=== PATIENT | male | born 1965 | race African-American/Black ===

== ENCOUNTER 2017-07-08 14:07 | Emergency (ER) | payer OTHER ==
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
[2017-07-08] MEDS ORDERED: OXYCODONE-ACETAMINOPHEN 5-325 MG TABLET PO ONE (15:52)
[2017-07-08] MEDS ORDERED: FENTANYL CITRATE INJ/PF 100 MCG/2 ML AMPUL IV PRN (16:49)
[2017-07-08] MEDS ORDERED: RINGERS SOLUTION,LACTATED 1,000 ML IV ONE (16:49)
[2017-07-08 20:22] VITALS: BP 165/90
== END 2017-07-08 20:15 | disposition short-term general hospital (02) ==
LOC: ER 14:07
DX: T20.22XA Burn of second degree of lip(s), initial encounter (principal); T20.24XA Burn of second degree of nose (septum), initial encounter; T20.20XA Burn of second degree of head, face, and neck, unspecified site, initial encounter; T23.202A Burn of second degree of left hand, unspecified site, initial encounter; T23.201A Burn of second degree of right hand, unspecified site, initial encounter; X01.8XXA Other exposure to uncontrolled fire, not in building or structure, initial encounter; Y93.H1 Activity, digging, shoveling and raking; Y92.007 Garden or yard of unspecified non-institutional (private) residence as the place of occurrence of the external cause; I10 Essential (primary) hypertension; E11.9 Type 2 diabetes mellitus without complications
CPT/HCPCS: 99284; 96361; 96374; J3010; J7120

== ENCOUNTER 2018-09-22 17:26 | Inpatient (IN) | payer OTHER ==
--- NOTE | 2018-09-22 17:48 | ER Document Report ---
ED Medical Screen (RME) - General Chief Complaint: Slurred Speech Stated Complaint: SLURRED SPEECH Time Seen by Provider: 09/22/18 17:43 Mode of Arrival: Ambulatory Information source: Patient Notes: Patient is a 53-year-old male presenting to the emergency department chief complaint of slurred speech. Patient's and friend at bedside reports this started approximately 1 week ago. They do report that the symptoms are worsening. Patient does have history of high blood pressure. Patient denies any weakness to any of his extremities. He has equal and very strong acid loader bilaterally. His speech is very slurred, friend at bedside states that patient normally has clear speech. Exam: Equal gastroenterology manager strength bilaterally. Slurred speech. I have greeted and performed a rapid initial assessment of this patient. A comprehensive ED assessment and evaluation of the patient, analysis of test results and completion of the medical decision making process will be conducted by additional ED providers. I have specifically instructed the patient or family members with the patient to immediately return to any nursing staff should anything change in the patient's condition or with their chief complaint. This medical record was dictated with voice recognizing software. There may be grammatical, syntax errors that are unintended. TRAVEL OUTSIDE OF THE [place] IN LAST 30 DAYS: No - Related Data Allergies/Adverse Reactions: No Known Allergies Allergy (Unverified 07/08/17 14:31) Past Medical History - Past Medical History Cardiac Medical History: Reports: Hx Hypertension Endocrine Medical History: Reports: Hx Diabetes Mellitus Type 2 Renal/ Medical History: Denies: Hx Peritoneal Dialysis Musculoskeltal Medical History: Reports Hx Arthritis Physical Exam - Vital signs Vitals: Temp Pulse Resp BP Pulse Ox 99.8 F 111 H 20 186/129 H 94 09/22/18 17:34 09/22/18 17:34 09/22/18 17:34 09/22/18 17:34 09/22/18 17:34 Course - Vital Signs Vital signs: Temp Pulse Resp BP Pulse Ox 99.8 F 111 H 20 186/129 H 94 09/22/18 17:34 09/22/18 17:34 09/22/18 17:34 09/22/18 17:34 09/22/18 17:34
--- NOTE | 2018-09-22 18:19 | RADIOLOGY REPORT (SQ) ---
EXAM DESCRIPTION: CHEST SINGLE VIEW COMPLETED DATE/TIME: 09/22/2018 5:57 pm REASON FOR STUDY: slurred speech x1 week COMPARISON: None. EXAM PARAMETERS: NUMBER OF VIEWS: One view. TECHNIQUE: Single frontal radiographic view of the chest acquired. RADIATION DOSE: NA LIMITATIONS: None. FINDINGS: LUNGS AND PLEURA: No opacities, masses or pneumothorax. No pleural effusion. MEDIASTINUM AND HILAR STRUCTURES: No masses. Contour normal. HEART AND VASCULAR STRUCTURES: Heart normal in size. Normal vasculature. BONES: No acute findings. HARDWARE: None in the chest. OTHER: No other significant finding. IMPRESSION: NO ACUTE RADIOGRAPHIC FINDING IN THE CHEST. TECHNICAL DOCUMENTATION: JOB ID: [id number] [employer]- All Rights Reserved Reading location - IP/workstation name: [email or web address]
--- NOTE | 2018-09-22 18:19 | RADIOLOGY REPORT (SQ) ---
EXAM DESCRIPTION: CT HEAD WITHOUT COMPLETED DATE/TIME: 09/22/2018 5:56 pm REASON FOR STUDY: slurred speech x1 week COMPARISON: None. TECHNIQUE: Axial images acquired through the brain without intravenous contrast. Images reviewed wi th bone, brain and subdural windows. Additional sagittal and coronal reconstructions were generated. Images stored on PACS. All CT scanners at this facility use dose modulation, iterative reconstruction, and/or weight based d osing when appropriate to reduce radiation dose to as low as reasonably achievable (ALARA). [facility]: Dose Right [facility]: CareDose [facility]: Dose Right [facility]: Teradose 4D [facility]: Smart Technologies RADIATION DOSE: CT Rad equipment meets quality standard of care and radiation dose reduction techniq ues were employed. CTDIvol: 53.2 mGy. DLP: 1044 mGy-cm. mGy. LIMITATIONS: None. FINDINGS: VENTRICLES: Normal size and contour. CEREBRUM: No masses. No hemorrhage. No midline shift. No evidence for acute infarction. Very smal l lacunar infarct in the left periventricular region. Normal weaver/white matter differentiation. No ar eas of low density in the white matter. CEREBELLUM: No masses. No hemorrhage. No alteration of density. No evidence for acute infarction. EXTRAAXIAL SPACES: No fluid collections. No masses. ORBITS AND GLOBE: No intra- or extraconal masses. Normal contour of globe without masses. CALVARIUM: No fracture. PARANASAL SINUSES: No fluid or mucosal thickening. SOFT TISSUES: No mass or hematoma. OTHER: No other significant finding. IMPRESSION: Old small left lacunar infarct. No acute intracranial imaging findings. EVIDENCE OF ACUTE STROKE: NO. COMMENT: Quality ID # [id number]: Final reports with documentation of one or more dose reduction techniques (e.g., Automated exposure control, adjustment of the mA and/or kV according to patient size, use of iterative reconstruction technique) TECHNICAL DOCUMENTATION: JOB ID: [id number] [employer]- All Rights Reserved Reading location - IP/workstation name: [email or web address]
[2018-09-22 18:43] LABS: ABSOLUTE BASOPHILS # (AUTO) 0.1 10^3/uL (0.0-0.2); ABSOLUTE EOSINOPHILS # (AUTO) 0.1 10^3/uL (0.0-0.6); ABSOLUTE LYMPHOCYTES (AUTO) 1.8 10^3/uL (0.5-4.7); ABSOLUTE MONOCYTES (AUTO) 0.5 10^3/uL (0.1-1.4); ABSOLUTE NEUT (AUTO) 2.9 10^3/uL (1.7-8.2); EOSINOPHILS % (AUTO) 1.1 % (0-6); HEMATOCRIT 40.1 % (37.9-51.0); HEMOGLOBIN 13.2 g/dL (13.5-17.0); LYMPHOCYTES % (AUTO) 33.2 % (13-45); MEAN CORPUSCULAR HEMOGLOBIN 27.1 pg (27.0-33.4); MEAN CORPUSCULAR HGB CONC 32.8 g/dL (32.0-36.0); MEAN CORPUSCULAR VOLUME 83 fl (80-97); PLATELET COUNT 343 10^3/uL (150-450); RED BLOOD COUNT 4.87 10^6/uL (4.35-5.55); RED CELL DISTRIBUTION WIDTH 15.3 % (11.5-14.0); SEGMENTED NEUTROPHILS % (AUTO) 54.7 % (42-78); TOTAL CELLS COUNTED % (AUTO) 100 %; WHITE BLOOD COUNT 5.3 10^3/uL (4.0-10.5)
[2018-09-22 18:49] LABS: INTERNATIONAL RATION (INR) 0.93; PROTHROMBIN TIME 12.5 SEC (11.4-15.4)
[2018-09-22 18:50] LABS: PARTIAL THROMBOPLASTIN TIME 25.8 SEC (23.5-35.8)
[2018-09-22 19:12] LABS: CREATINE KINASE MB 1.37 ng/mL (<4.55); TROPONIN I 0.013 ng/mL
[2018-09-22 19:23] LABS: ALANINE AMINOTRANSFERASE 37 U/L (21-72); ALBUMIN 4.6 g/dL (3.5-5.0); ALKALINE PHOSPHATASE 53 U/L (38-126); ANION GAP 12 (5-19); ASPARTATE AMINO TRANSFERASE 37 U/L (17-59); BILIRUBIN,DIRECT 0.2 mg/dL (0.0-0.4); BILIRUBIN,TOTAL 0.3 mg/dL (0.2-1.3); BLOOD UREA NITROGEN 11 mg/dL (7-20); CALCIUM 10.2 mg/dL (8.4-10.2); CARBON DIOXIDE 32 mmol/L (22-30); CHLORIDE 100 mmol/L (98-107); CREATINE KINASE 623 U/L (55-170); GLUCOSE 211 mg/dL (75-110); SODIUM 143.8 mmol/L (137-145); TOTAL PROTEIN 8.4 g/dL (6.3-8.2)
--- NOTE | 2018-09-22 20:30 | ER Document Report ---
ED Neuro Symptoms/Deficit - General Chief Complaint: Slurred Speech Stated Complaint: SLURRED SPEECH Time Seen by Provider: 09/22/18 17:43 Mode of Arrival: Ambulatory Notes: Patient is a 53-year-old male that comes to the emergency department for chief complaint of slurred speech. This started almost 1 week ago per patient and friend at bedside. They state normally he has clear speech and this is completely new. Patient denies headache, chest pain, dizziness, focal numbness or weakness. He does not have a history of CVA. Past medical history includes hypertension, hyperlipidemia, type 2 diabetes, medicated. He does not smoke. Friend states that for some reason patient keeps repeating the line "yessir" ab out everything. TRAVEL OUTSIDE OF THE [place] IN LAST 30 DAYS: No - Related Data Allergies/Adverse Reactions: No Known Allergies Allergy (Unverified 07/08/17 14:31) Past Medical History - General Information source: Patient - Social History Smoking Status: Unknown if Ever Smoked Chew tobacco use (# tins/day): No Frequency of alcohol use: None Drug Abuse: None Lives with: Family Family History: Reviewed & Not Pertinent Patient has suicidal ideation: No Patient has homicidal ideation: No - Past Medical History Cardiac Medical History: Reports: Hx Hypertension Endocrine Medical History: Reports: Hx Diabetes Mellitus Type 2 Renal/ Medical History: Denies: Hx Peritoneal Dialysis Musculoskeletal Medical History: Reports Hx Arthritis Review of Systems - Review of Systems Constitutional: No symptoms reported EENT: No symptoms reported Cardiovascular: No symptoms reported Respiratory: No symptoms reported Gastrointestinal: No symptoms reported Genitourinary: No symptoms reported Male Genitourinary: No symptoms reported Musculoskeletal: No symptoms reported Skin: No symptoms reported Hematologic/Lymphatic: No symptoms reported Neurological/Psychological: See HPI Physical Exam - Vital signs Vitals: Temp Pulse Resp BP Pulse Ox 99.8 F 111 H 20 186/129 H 94 09/22/18 17:34 09/22/18 17:34 09/22/18 17:34 09/22/18 17:34 09/22/18 17:34 - Notes Notes: GENERAL: Alert, interacts well. No acute distress. HEAD: Normocephalic, atraumatic. EYES: Pupils equal, round, and reactive to light. Extraocular movements intact. ENT: Oral mucosa moist, tongue midline. Oropharynx unremarkable. Airway patent. LUNGS: Clear to auscultation bilaterally, no wheezes, rales, or rhonchi. No respiratory distress. HEART: Regular rate and rhythm. No murmur ABDOMEN: Soft, non-tender. Non-distended. Bowel sounds present in all 4 quadrants. GENITOURINARY: Deferred EXTREMITIES: Moves all 4 extremities spontaneously. No edema, normal radial and dorsalis pedis pulses bilaterally. No cyanosis. BACK: no cervical, thoracic, lumbar midline tenderness. No saddle anesthesia, normal distal neurovascular exam. Moves all extremities in full range of motion. NEUROLOGICAL: Alert and oriented x3. Slurred speech consistently. Appears to have weakness of the left side of the face noted with smiling. Cranial nerves intact otherwise. Normal strength bilaterally. No ataxia. PSYCH: Normal affect, normal mood. SKIN: Warm, dry, normal turgor. No rashes or lesions noted. Course - Re-evaluation Re-evalutation: 09/22/18 20:29 On my evaluation patient definitely has slurred speech and keeps repeating "yessir" about everything. He does follow directions well. He can be understood but this is not difficult at times. Patient also appears to have weakness of the left side of the face on my evaluation although he has no other neurological deficits on exam. Because symptoms started 1 week ago patient is obviously past the window for TPA. Patient is hypertensive, he is not tachycardic on my evaluation, he has no fever, he has no current complaints. CBC, chemistry, troponin unremarkable. EKG does not show atrial fibrillation. Patient is very hypertensive in the 180s to 190s. CAT scan showing old lacunar infarct which is small. Patient with examination suggesting possible additional stroke that is not visualized. Patient will be given aspirin, patient will be discussed with hospitalist for admission. Discussed with Dr. Miranda, patient admitted to the [facility] for additional evaluation and management. Patient states agreement with this plan. - Vital Signs Vital signs: Temp Pulse Resp BP Pulse Ox 98.2 F 93 16 163/75 H 97 09/23/18 03:13 09/23/18 04:00 09/23/18 04:00 09/23/18 04:00 09/23/18 04:00 - Laboratory Result Diagrams: 09/23/18 04:28 09/22/18 18:24 Laboratory results interpreted by me: 09/22/18 09/22/18 09/22/18 18:23 18:24 18:24 Hgb 13.2 L RDW 15.3 H Carbon Dioxide 32 H Glucose 211 H POC Glucose 206 H Creatine Kinase 623 H Total Protein 8.4 H Discharge - Discharge Clinical Impression: Slurred speech, Weakness on left side of face, Uncontrolled hypertension Condition: Stable Disposition: ADMITTED INPATIENT Admitting Provider: Ruben (Hospitalist) Unit Admitted: [facility]
[2018-09-22] MEDS ORDERED: ASPIRIN 81 MG TABLET, CHEWABLE PO ONE (21:01)
[2018-09-22] MEDS ORDERED: DEXTROSE 40% GEL 15 GM TUBE PO PRN ×2 (21:02)
[2018-09-22] MEDS ORDERED: MAGNESIUM HYDROXIDE SUSP 30 ML UDCUP PO PRN (21:02)
[2018-09-22] MEDS ORDERED: DOCUSATE SODIUM 100 MG CAPSULE PO PRN (21:02)
[2018-09-22] MEDS ORDERED: GLUCAGON,HUMAN RECOMB 1 MG INJ IM PRN (21:02)
[2018-09-22] MEDS ORDERED: ACETAMINOPHEN 325 MG TABLET PO PRN (21:02)
[2018-09-22] MEDS ORDERED: DEXTROSE 50%-WATER 25 GM/50 ML DISP.SYRIN IV PRN ×2 (21:02)
[2018-09-22] MEDS: ATORVASTATIN CALCIUM 80 MG TABLET PO SCH (21:33)
[2018-09-22] MEDS: HEPARIN SOD (PORCINE) 5,000 UNIT/ML 1 ML SYRINGE SUBCUT SCH (22:10)
--- NOTE | 2018-09-22 22:32 | RADIOLOGY REPORT (SQ) ---
EXAM DESCRIPTION: RadLex: MR BRAIN WITHOUT IV CONTRAST CLINICAL HISTORY: 53 years Male; L facial weakness and slurred speach TECHNIQUE: Routine noncontrast MRI brain protocol COMPARISON: CT 09/22/2018 FINDINGS: There are multiple scattered predominantly cortical foci of diffusion restriction in the posterior right frontal lobe and inferior right parietal lobe, also involving posterior superior right temporal gyrus. These scattered focal acute infarcts involving area approximately 7 cm AP by 3.5 cm LR by 5 cm SI. There is associated focal vasogenic edema with each of the infarcts, but no evidence for hemorrhage on gradient echo. Diffuse atrophy is noted. Old focal infarct is noted in the left centrum semiovale and in the lateral left basal ganglia. Old focal 1.1 cm infarct in the inferior medial left occipital lobe. Old focal lacunar infarcts in the left hemipons, 5 mm diameter. No hemosiderin deposition. Ventricles and cisterns are preserved. No midline shift. Calvarial marrow is normal. Paranasal sinuses and mastoid air cells are clear. Normal flow-voids are seen in the major intracranial arteries. IMPRESSION: 1. Multiple small scattered acute cortical/subcortical infarcts in the posterior right MCA territory. All infarcts are less than 7 mm. No hemorrhage or mass effect. 2. Atrophy and multiple old infarcts, as described
[2018-09-23 02:10] LABS: URINE AMPHETAMINES SCREEN NEGATIVE; URINE BARBITURATES SCREEN NEGATIVE; URINE BENZODIAZEPINES SCREEN NEGATIVE; URINE COCAINE SCREEN NEGATIVE; URINE MARIJUANA (THC) SCREEN NEGATIVE; URINE METHADONE SCREEN NEGATIVE; URINE PHENCYCLIDINE SCREEN NEGATIVE
[2018-09-23 04:46] LABS: ABSOLUTE EOSINOPHILS # (AUTO) 0.1 10^3/uL (0.0-0.6); ABSOLUTE LYMPHOCYTES (AUTO) 1.5 10^3/uL (0.5-4.7); ABSOLUTE MONOCYTES (AUTO) 0.4 10^3/uL (0.1-1.4); ABSOLUTE NEUT (AUTO) 3.4 10^3/uL (1.7-8.2); BASOPHILS % (AUTO) 0.7 % (0-2); EOSINOPHILS % (AUTO) 1.8 % (0-6); HEMATOCRIT 36.9 % (37.9-51.0); LYMPHOCYTES % (AUTO) 27.8 % (13-45); MEAN CORPUSCULAR HEMOGLOBIN 26.8 pg (27.0-33.4); MEAN CORPUSCULAR HGB CONC 32.6 g/dL (32.0-36.0); MEAN CORPUSCULAR VOLUME 82 fl (80-97); PLATELET COUNT 308 10^3/uL (150-450); RED BLOOD COUNT 4.48 10^6/uL (4.35-5.55); RED CELL DISTRIBUTION WIDTH 15.1 % (11.5-14.0); SEGMENTED NEUTROPHILS % (AUTO) 61.7 % (42-78); TOTAL CELLS COUNTED % (AUTO) 100 %; WHITE BLOOD COUNT 5.6 10^3/uL (4.0-10.5)
[2018-09-23 04:58] LABS: CHOLESTEROL 57.42 mg/dL (0-200); TRIGLYCERIDES 84 mg/dL (<150)
[2018-09-23 05:14] LABS: DIRECT LDL < 30 mg/dL (<100)
[2018-09-23] MEDS: HEPARIN SOD (PORCINE) 5,000 UNIT/ML 1 ML SYRINGE SUBCUT SCH ×3 (05:26→21:30)
--- NOTE | 2018-09-23 06:45 | PDOC H&P ---
History of Present Illness Admission Date/PCP: 09/22/18 21:[facility] Patient complains of: Slurred speech History of Present Illness: KEELY MURPHY is a 53 year old male with a past medical history of hypertension and diabetes who presents 5 days after the onset of left-sided facial weakness and slurred speech. In the emergency room he is found to have dense weakness to the left face with slurred speech. He denies palpitations, headache blurred vision focal weakness but clearly has expressive aphasia. He is referred to the hospitalist for admission Past Medical History Cardiac Medical History: Reports: Hypertension Endocrine Medical History: Reports: Diabetes Mellitus Type 2 Musculoskeltal Medical History: Reports: Arthritis Social History Information Source: Patient Lives with: Family Smoking Status: Unknown if Ever Smoked Frequency of Alcohol Use: None - Room Drugs: None - Advance Directive Resuscitation Status: Full Code Family History Family History: Reviewed & Not Pertinent Parental Family History Reviewed: Yes Children Family History Reviewed: Yes Sibling(s) Family History Reviewed.: Yes Medication/Allergy Allergies/Adverse Reactions: No Known Allergies Allergy (Unverified 07/08/17 14:31) Review of Systems Constitutional: ABSENT: chills, fever(s), headache(s), weight gain, weight loss Eyes: ABSENT: visual disturbances Ears: ABSENT: hearing changes Cardiovascular: ABSENT: chest pain, dyspnea on exertion, edema, orthropnea, palpitations Respiratory: ABSENT: cough, hemoptysis Gastrointestinal: ABSENT: abdominal pain, constipation, diarrhea, hematemesis, hematochezia, nausea, vomiting Genitourinary: ABSENT: dysuria, hematuria Musculoskeletal: ABSENT: joint swelling Integumentary: ABSENT: rash, wounds Neurological: ABSENT: abnormal gait, abnormal speech, confusion, dizziness, focal weakness, syncope Psychiatric: ABSENT: anxiety, depression, homidical ideation, suicidal ideation Endocrine: ABSENT: cold intolerance, heat intolerance, polydipsia, polyuria Hematologic/Lymphatic: ABSENT: easy bleeding, easy bruising Physical Exam Vital Signs: Temp Pulse Resp BP Pulse Ox 98.2 F 93 16 163/75 H 97 09/23/18 03:13 09/23/18 04:00 09/23/18 04:00 09/23/18 04:00 09/23/18 04:00 Intake & Output 09/21/18 09/22/18 09/23/18 11:59 11:59 11:59 Weight 112.6 kg General appearance: PRESENT: cooperative, disheveled, mild distress, obese Head exam: PRESENT: atraumatic, normocephalic Eye exam: PRESENT: conjunctiva pink, EOMI, PERRLA. ABSENT: scleral icterus Ear exam: PRESENT: normal external ear exam Mouth exam: PRESENT: moist. ABSENT: tongue midline - Right deviation Neck exam: ABSENT: carotid bruit, JVD, lymphadenopathy, thyromegaly Respiratory exam: PRESENT: clear to auscultation amaris. ABSENT: rales, rhonchi, wheezes Cardiovascular exam: PRESENT: RRR. ABSENT: diastolic murmur, rubs, systolic murmur Pulses: PRESENT: normal dorsalis pedis pul Vascular exam: PRESENT: normal capillary refill GI/Abdominal exam: PRESENT: normal bowel sounds, soft. ABSENT: distended, guarding, mass, organolmegaly, rebound, tenderness Rectal exam: PRESENT: deferred Extremities exam: PRESENT: full ROM. ABSENT: calf tenderness, clubbing, pedal edema Neurological exam: PRESENT: alert, oriented to person, oriented to place, oriented to time, CN II-XII grossly intact, motor sensory deficit - Left face, aphasic Psychiatric exam: PRESENT: appropriate affect, normal mood. ABSENT: homicidal ideation, suicidal ideation Skin exam: PRESENT: dry, intact, warm. ABSENT: cyanosis, rash Results Laboratory Results: 09/23/18 04:28 09/22/18 18:24 09/22/18 09/22/18 09/23/18 18:24 18:24 04:28 WBC 5.3 5.6 RBC 4.87 4.48 Hgb 13.2 L 12.0 L Hct 40.1 36.9 L MCV 83 82 MCH 27.1 26.8 L MCHC 32.8 32.6 RDW 15.3 H 15.1 H Plt Count 343 308 Seg Neutrophils % 54.7 61.7 Lymphocytes % 33.2 27.8 Monocytes % 10.0 8.0 Eosinophils % 1.1 1.8 Basophils % 1.0 0.7 Absolute Neutrophils 2.9 3.4 Absolute Lymphocytes 1.8 1.5 Absolute Monocytes 0.5 0.4 Absolute Eosinophils 0.1 0.1 Absolute Basophils 0.1 0.0 Sodium 143.8 Potassium 4.0 Chloride 100 Carbon Dioxide 32 H Anion Gap 12 BUN 11 Creatinine 1.05 Est GFR ( Amer) > 60 Est GFR (Non-Af Amer) > 60 Glucose 211 H Calcium 10.2 Total Bilirubin 0.3 AST 37 ALT 37 Alkaline Phosphatase 53 Total Protein 8.4 H Albumin 4.6 Triglycerides Cholesterol LDL Cholesterol Direct VLDL Cholesterol HDL Cholesterol 09/23/18 04:28 WBC RBC Hgb Hct MCV MCH MCHC RDW Plt Count Seg Neutrophils % Lymphocytes % Monocytes % Eosinophils % Basophils % Absolute Neutrophils Absolute Lymphocytes Absolute Monocytes Absolute Eosinophils Absolute Basophils Sodium Potassium Chloride Carbon Dioxide Anion Gap BUN Creatinine Est GFR ( Amer) Est GFR (Non-Af Amer) Glucose Calcium Total Bilirubin AST ALT Alkaline Phosphatase Total Protein Albumin Triglycerides 84 Cholesterol 57.42 LDL Cholesterol Direct < 30 VLDL Cholesterol 17.0 HDL Cholesterol 29 L 09/22/18 09/22/18 18:24 18:24 Creatine Kinase 623 H CK-MB (CK-2) 1.37 Troponin I 0.013 Impressions: Head MRI 09/22/18 00:00 IMPRESSION: 1. Multiple small scattered acute cortical/subcortical infarcts in the posterior right MCA territory. All infarcts are less than 7 mm. No hemorrhage or mass effect. 2. Atrophy and multiple old infarcts, as described Chest X-Ray 09/22/18 17:46 IMPRESSION: NO ACUTE RADIOGRAPHIC FINDING IN THE CHEST. Head CT 09/22/18 17:46 IMPRESSION: Old small left lacunar infarct. No acute intracranial imaging findings. EVIDENCE OF ACUTE STROKE: NO. Assessment and Plan - Diagnosis (1) CVA (cerebral vascular accident) Is this a current diagnosis for this admission?: Yes Plan: CVA care set deployed, follow-up physical therapy, occupational therapy and speech therapy carotid Doppler, MRI and 2D echo. Continue aspirin and Lipitor (2) Expressive aphasia Is this a current diagnosis for this admission?: Yes Plan: Speech therapy ordered concern for aspiration risk may require barium evaluation. (3) Diabetes Is this a current diagnosis for this admission?: Yes Plan: Follow-up medication reconciliation, Humalog sliding scale, follow-up A1c (4) Hypertension Is this a current diagnosis for this admission?: Yes Plan: MAGNOLIA inhibitor, hydralazine as needed
[2018-09-23] MEDS: INSULIN LISPRO 100 UNIT/ML 3 ML VIAL SUBCUT SCH ×3 (08:10→17:15)
[2018-09-23] MEDS ORDERED: ASPIRIN 325 MG TABLET, ENT COATED PO SCH (10:00)
[2018-09-23] MEDS: HYDRALAZINE HCL INJ/PF 20 MG/1 ML SDV IV PRN (15:24)
--- NOTE | 2018-09-23 15:38 | PDOC PROGRESS REPORT ---
Subjective Progress Note for:: 09/23/18 Subjective:: This is a 53 yr old male with a PMH of HTN and DM 2 who presented with left sided facail weakness and slurred speech which started 5 days ago. MRI showed acute/subacute infarcts on the right MCA distribution. No acute event overnight. He says he still has some left facial numbness. His father at bedside says that his slurred speech is a little better today. Denies any headache. No weakness, vertigo, chest pain or shortness of breath. He was evaluated by speech therapy and has recommended mechanical soft diet for now and an MBS on Tuesday. Reason For Visit: HTN EMRG SUB ACUTE CVA DM Physical Exam Vital Signs: Temp Pulse Resp BP Pulse Ox 98.5 F 89 16 147/81 H 97 09/23/18 09:07 09/23/18 09:07 09/23/18 09:07 09/23/18 09:07 09/23/18 09:07 Intake & Output 09/22/18 09/23/18 09/24/18 06:59 06:59 06:59 Weight 248 lb 3.848 oz General appearance: PRESENT: no acute distress, well-developed, well-nourished Head exam: PRESENT: atraumatic, normocephalic Eye exam: PRESENT: conjunctiva pink, EOMI, PERRLA. ABSENT: scleral icterus Ear exam: PRESENT: normal external ear exam Mouth exam: PRESENT: moist, tongue midline Neck exam: ABSENT: carotid bruit, JVD, lymphadenopathy, thyromegaly Respiratory exam: PRESENT: clear to auscultation amaris. ABSENT: rales, rhonchi, wheezes Cardiovascular exam: PRESENT: RRR. ABSENT: diastolic murmur, rubs, systolic murmur Pulses: PRESENT: normal dorsalis pedis pul GI/Abdominal exam: PRESENT: normal bowel sounds, soft. ABSENT: distended, guarding, mass, organolmegaly, rebound, tenderness Rectal exam: PRESENT: deferred Neurological exam: PRESENT: alert, awake, oriented to person, oriented to place, oriented to time, oriented to situation, CN II-XII grossly intact, motor sensory deficit - Slightly reduced sensation in the left facial region Results Laboratory Results: 09/23/18 04:28 09/22/18 18:24 09/22/18 09/22/18 09/23/18 18:24 18:24 04:28 WBC 5.3 5.6 RBC 4.87 4.48 Hgb 13.2 L 12.0 L Hct 40.1 36.9 L MCV 83 82 MCH 27.1 26.8 L MCHC 32.8 32.6 RDW 15.3 H 15.1 H Plt Count 343 308 Seg Neutrophils % 54.7 61.7 Lymphocytes % 33.2 27.8 Monocytes % 10.0 8.0 Eosinophils % 1.1 1.8 Basophils % 1.0 0.7 Absolute Neutrophils 2.9 3.4 Absolute Lymphocytes 1.8 1.5 Absolute Monocytes 0.5 0.4 Absolute Eosinophils 0.1 0.1 Absolute Basophils 0.1 0.0 Sodium 143.8 Potassium 4.0 Chloride 100 Carbon Dioxide 32 H Anion Gap 12 BUN 11 Creatinine 1.05 Est GFR ( Amer) > 60 Est GFR (Non-Af Amer) > 60 Glucose 211 H Calcium 10.2 Total Bilirubin 0.3 AST 37 ALT 37 Alkaline Phosphatase 53 Total Protein 8.4 H Albumin 4.6 Triglycerides Cholesterol LDL Cholesterol Direct VLDL Cholesterol HDL Cholesterol 09/23/18 04:28 WBC RBC Hgb Hct MCV MCH MCHC RDW Plt Count Seg Neutrophils % Lymphocytes % Monocytes % Eosinophils % Basophils % Absolute Neutrophils Absolute Lymphocytes Absolute Monocytes Absolute Eosinophils Absolute Basophils Sodium Potassium Chloride Carbon Dioxide Anion Gap BUN Creatinine Est GFR ( Amer) Est GFR (Non-Af Amer) Glucose Calcium Total Bilirubin AST ALT Alkaline Phosphatase Total Protein Albumin Triglycerides 84 Cholesterol 57.42 LDL Cholesterol Direct < 30 VLDL Cholesterol 17.0 HDL Cholesterol 29 L 09/22/18 09/22/18 18:24 18:24 Creatine Kinase 623 H CK-MB (CK-2) 1.37 Troponin I 0.013 Impressions: Head MRI 09/22/18 00:00 IMPRESSION: 1. Multiple small scattered acute cortical/subcortical infarcts in the posterior right MCA territory. All infarcts are less than 7 mm. No hemorrhage or mass effect. 2. Atrophy and multiple old infarcts, as described Chest X-Ray 09/22/18 17:46 IMPRESSION: NO ACUTE RADIOGRAPHIC FINDING IN THE CHEST. Head CT 09/22/18 17:46 IMPRESSION: Old small left lacunar infarct. No acute intracranial imaging findings. EVIDENCE OF ACUTE STROKE: NO. Assessment and Plan - Diagnosis (1) Acute CVA (cerebrovascular accident) Is this a current diagnosis for this admission?: Yes Plan: As mentioned, MRI showed multiple acute/subacute infarcts in the posterior right MCA distribution. Patient is not a TPA candidate as he had symptom onset 5 days ago. Started on aspirin and statin. (2) Diabetes Is this a current diagnosis for this admission?: Yes Plan: Hba1c at 6.8. On sliding scale. (3) Hypertension Is this a current diagnosis for this admission?: Yes Plan: Resume lisinopril. Add carvedilol. On hydralazine prn. - Time Time Spent with patient: 25-34 minutes
--- NOTE | 2018-09-23 16:01 | RADIOLOGY REPORT (SQ) ---
EXAM DESCRIPTION: CAROTID DOPPLER COMPLETED DATE/TIME: 09/23/2018 3:50 pm REASON FOR STUDY: cva COMPARISON: MRI brain 09/22/2018 CT brain 09/22/2018 TECHNIQUE: Grayscale ultrasound, Doppler velocity and spectra, and color Doppler images acquired of the extra-cranial carotid and vertebral arteries. Images stored on PACS. LIMITATIONS: None. FINDINGS: RIGHT CAROTID CCA Velocities: Within normal limits. Right common carotid artery peak systolic velocity 1.2 m/sec ICA Velocities Peak systolic 0.33 m/s. End diastolic 0.12 m/s. Proximal ICA/CCA peak systolic ratio normal. Spectra normal. No significant plaque. LEFT CAROTID CCA Velocities: Within normal limits. Left common carotid artery peak systolic velocity 1 m/sec. ICA Velocities Peak systolic 0.54 m/s. End diastolic 0.28 m/s. Proximal ICA/CCA peak systolic ratio normal. Spectra normal. No significant plaque. VERTEBRAL ARTERIES: Antegrade flow. Normal waveforms. SUBCLAVIAN ARTERIES: Not examined OTHER: No other significant finding. IMPRESSION: NO HEMODYNAMICALLY SIGNIFICANT STENOSIS. COMMENT: Quality ID #[id number]: Velocity criteria are extrapolated from the diameter data as defined by t he Society of Radiologists in Ultrasound Consensus Conference. Radiology 2003: 229; 340-346. TECHNICAL DOCUMENTATION: JOB ID: [id number] [employer]- All Rights Reserved Reading location - IP/workstation name: [email or web address]
[2018-09-23] MEDS ORDERED: METHOCARBAMOL 750 MG TABLET PO PRN (16:29)
[2018-09-23] MEDS ORDERED: CARVEDILOL 6.25 MG TABLET PO ONE (17:00)
[2018-09-23] MEDS ORDERED: NITROGLYCERIN/D5W 50 MG/250 ML RTUINJ IV PRN (18:57)
[2018-09-23] MEDS ORDERED: NITROGLYCERIN/D5W 50 MG/250 ML RTUINJ IV ONE (18:57)
--- NOTE | 2018-09-23 19:15 | EKG REPORT ---
SEVERITY:- ABNORMAL ECG - SINUS RHYTHM BORDERLINE INFERIOR Q WAVES BORDERLINE T ABNORMALITIES, INFERIOR LEADS BORDERLINE PROLONGED QT INTERVAL : Confirmed by: Oliva Pedraza 23-Sep-2018 19:14:13
[2018-09-23] MEDS: ATORVASTATIN CALCIUM 80 MG TABLET PO SCH (21:30)
[2018-09-24] MEDS: HEPARIN SOD (PORCINE) 5,000 UNIT/ML 1 ML SYRINGE SUBCUT SCH ×2 (06:00→13:44)
[2018-09-24] MEDS ORDERED: SUCCINYLCHOLINE CHLORIDE INJ 200 MG/10 ML VIAL ONE ×2 (08:51→14:55)
[2018-09-24] MEDS: INSULIN LISPRO 100 UNIT/ML 3 ML VIAL SUBCUT SCH ×3 (08:58→16:11)
[2018-09-24] MEDS ORDERED: CARVEDILOL 12.5 MG TABLET PO SCH (10:00)
[2018-09-24] MEDS ORDERED: LISINOPRIL 10 MG TABLET PO SCH (10:00)
[2018-09-24] MEDS ORDERED: CARVEDILOL 6.25 MG TABLET PO SCH (10:00)
[2018-09-24] MEDS ORDERED: HYDROCHLOROTHIAZIDE 25 MG TABLET PO SCH (10:00)
[2018-09-24] MEDS ORDERED: ASPIRIN 81 MG TABLET, CHEWABLE PO SCH (10:00)
[2018-09-24] MEDS: HYDRALAZINE HCL INJ/PF 20 MG/1 ML SDV IV PRN (10:30)
[2018-09-24 10:41] LABS: ANION GAP 12 (5-19); BLOOD UREA NITROGEN 10 mg/dL (7-20); CALCIUM 9.7 mg/dL (8.4-10.2); CARBON DIOXIDE 31 mmol/L (22-30); CHLORIDE 98 mmol/L (98-107); GLUCOSE 206 mg/dL (75-110); POTASSIUM 4.2 mmol/L (3.6-5.0); SODIUM 140.5 mmol/L (137-145)
[2018-09-24] MEDS ORDERED: CLONIDINE HCL 0.1 MG TABLET PO ONE (11:30)
[2018-09-24] MEDS ORDERED: NITROGLYCERIN/D5W 50 MG/250 ML RTUINJ IV PRN (14:36)
--- NOTE | 2018-09-24 14:38 | RADIOLOGY REPORT (SQ) ---
EXAM DESCRIPTION: CT HEAD WITHOUT COMPLETED DATE/TIME: 09/24/2018 2:16 pm REASON FOR STUDY: AMS COMPARISON: CT HEAD 09/22/2018. MRI brain 09/22/2018 TECHNIQUE: Axial images acquired through the brain without intravenous contrast. Images reviewed wi th bone, brain and subdural windows. Images stored on PACS. All CT scanners at this facility use dose modulation, iterative reconstruction, and/or weight based d osing when appropriate to reduce radiation dose to as low as reasonably achievable (ALARA). [facility]: Dose Right [facility]: CareDose [facility]: Dose Right [facility]: Teradose 4D [facility]: Smart Technologies RADIATION DOSE: CT Rad equipment meets quality standard of care and radiation dose reduction techniq ues were employed. CTDIvol: 53.2 mGy. DLP: 1017 mGy-cm. mGy. LIMITATIONS: None. FINDINGS: VENTRICLES: Prominent ventricles secondary to involutional atrophy. CEREBRUM: No masses. No hemorrhage. No midline shift. No evidence for large vessel territory acute infarction. Old left centrum semi ovale, left basal ganglia and left inferior medial occipital lobe subcortical infarcts. Normal weaver/white matter differentiation. No areas of low density in the white matter. CEREBELLUM: No masses. No hemorrhage. No alteration of density. No evidence for acute infarction. EXTRAAXIAL SPACES: No fluid collections. No masses. ORBITS AND GLOBE: No intra- or extraconal masses. Normal contour of globe without masses. CALVARIUM: No fracture. PARANASAL SINUSES: Minimal left maxillary sinus mucosal thickening. SOFT TISSUES: No mass or hematoma. OTHER: No other significant finding. IMPRESSION: NO ACUTE INTRACRANIAL IMAGING FINDINGS. EVIDENCE OF ACUTE STROKE: NO. COMMENT: Quality ID # [id number]: Final reports with documentation of one or more dose reduction techniques (e.g., Automated exposure control, adjustment of the mA and/or kV according to patient size, use of iterative reconstruction technique) TECHNICAL DOCUMENTATION: JOB ID: [id number] [employer]- All Rights Reserved Reading location - IP/workstation name: [email or web address]
[2018-09-24] MEDS ORDERED: DEXAMETHASONE SOD PHOSPHATE INJ 4 MG/1 ML VIAL IV ONE (14:45)
--- NOTE | 2018-09-24 15:10 | PDOC PROGRESS REPORT ---
Subjective Progress Note for:: 09/24/18 Subjective:: This is a 53 yr old male with a PMH of HTN and DM 2 who presented with left sided facail weakness and slurred speech which started 5 days ago. MRI showed acute/subacute infarcts on the right MCA distribution. He says he still has some left facial numbness. His father at bedside says that his slurred speech is a little better today. Denies any headache. No weakness, vertigo, chest pain or shortness of breath. He was evaluated by speech therapy and has recommended mechanical soft diet for now and an MBS on Tuesday. 09/24: Patient was started on nitro drip last night as his blood pressures were uncontrolled and went to the 200 systolic and he became less conversant. This morning, he continues to have slurred speech but is more conversant and did state that l his eft facial numbness has resolved. Coreg was increased and hydrochlorothiazide was also added as he continued to require uptitration of nitro drip. Later this afternoon, blood pressures dropped to the 140s-150 systolic and he did developed the same episode where he was not as conversant as this morning. Will avoid significant drop in blood pressures due to his acute CVA. Will repeat head CT to assess for hemorrhagic conversion or cerebral edema. Will transfer patient to the ICU due to blood pressure fluctuations and accompanying mental status changes. Reason For Visit: HTN EMRG SUB ACUTE CVA DM Physical Exam Vital Signs: Temp Pulse Resp BP Pulse Ox 99.0 F 113 H 16 162/93 H 96 09/24/18 11:22 09/24/18 12:00 09/24/18 12:00 09/24/18 12:00 09/24/18 12:00 Intake & Output 09/23/18 09/24/18 09/25/18 06:59 06:59 06:59 Intake Total 1429 Output Total 100 Balance 1329 Weight 248 lb 3.848 oz 248 lb 0.321 oz General appearance: PRESENT: no acute distress, well-developed, well-nourished Head exam: PRESENT: atraumatic, normocephalic Eye exam: PRESENT: conjunctiva pink, EOMI, PERRLA. ABSENT: scleral icterus Ear exam: PRESENT: normal external ear exam Mouth exam: PRESENT: moist, tongue midline Neck exam: ABSENT: carotid bruit, JVD, lymphadenopathy, thyromegaly Respiratory exam: PRESENT: clear to auscultation amaris. ABSENT: rales, rhonchi, wheezes Cardiovascular exam: PRESENT: RRR. ABSENT: diastolic murmur, rubs, systolic murmur Pulses: PRESENT: normal dorsalis pedis pul GI/Abdominal exam: PRESENT: normal bowel sounds, soft. ABSENT: distended, guarding, mass, organolmegaly, rebound, tenderness Rectal exam: PRESENT: deferred Neurological exam: PRESENT: alert, awake, oriented to person, oriented to place, oriented to time, oriented to situation, CN II-XII grossly intact - Appears to have mild left hemineglect speech is slurred,, no sensorimotor weakness Results Laboratory Results: 09/23/18 04:28 09/24/18 10:07 09/24/18 10:07 Sodium 140.5 Potassium 4.2 Chloride 98 Carbon Dioxide 31 H Anion Gap 12 BUN 10 Creatinine 0.83 Est GFR ( Amer) > 60 Est GFR (Non-Af Amer) > 60 Glucose 206 H Calcium 9.7 09/22/18 09/22/18 18:24 18:24 Creatine Kinase 623 H CK-MB (CK-2) 1.37 Troponin I 0.013 Impressions: Head MRI 09/22/18 00:00 IMPRESSION: 1. Multiple small scattered acute cortical/subcortical infarcts in the posterior right MCA territory. All infarcts are less than 7 mm. No hemorrhage or mass effect. 2. Atrophy and multiple old infarcts, as described Chest X-Ray 09/22/18 17:46 IMPRESSION: NO ACUTE RADIOGRAPHIC FINDING IN THE CHEST. Carotid Doppler Study 09/23/18 00:00 IMPRESSION: NO HEMODYNAMICALLY SIGNIFICANT STENOSIS. Assessment and Plan - Diagnosis (1) Hypertensive emergency Is this a current diagnosis for this admission?: Yes Plan: On nitro drip. On lisinopril. Coreg increased and hydrochlorothiazide added. (2) Acute CVA (cerebrovascular accident) Is this a current diagnosis for this admission?: Yes Plan: As mentioned, MRI showed multiple acute/subacute infarcts in the posterior right MCA distribution. Patient is not a TPA candidate as he had symptom onset 5 days ago. Started on aspirin and statin. 09/24: Repeat CT to evaluate for hemorrhagic conversion and cerebral edema. (3) Diabetes Is this a current diagnosis for this admission?: Yes Plan: Hba1c at 6.8. Sugars at goal. On sliding scale. (4) Hypertension Is this a current diagnosis for this admission?: Yes Plan: As per number 1. - Time Time Spent with patient: 25-34 minutes
[2018-09-24 16:17] LABS: ARTERIAL BLOOD BASE EXCESS 4.5 mmol/L; ARTERIAL BLOOD H2CO3 1.22 mmol/L (1.05-1.35); ARTERIAL BLOOD HCO3 28.5 mmol/L (20-24); ARTERIAL BLOOD O2 SATURATION 96.1 % (94-98); ARTERIAL BLOOD PCO2 40.5 mmHg (35-45); ARTERIAL BLOOD PH 7.47 (7.35-7.45); ARTERIAL BLOOD TOTAL CO2 29.8 mmol/L (23-27)
[2018-09-24 16:18] LABS: ARTERIAL BLOOD FIO2 ROOM AIR
[2018-09-24] MEDS ORDERED: MIDAZOLAM HCL 0 MG/0 ML RTUINJ ONE (16:47)
[2018-09-24] MEDS ORDERED: PROPOFOL 1,000 MG/100 ML INFUS..BTL IV ONE ×2 (16:50→17:54)
[2018-09-24] MEDS ORDERED: PROPOFOL 1,000 MG/100 ML INFUS..BTL IV PRN (17:15)
--- NOTE | 2018-09-24 17:18 | PDOC TRANSFER SUMMARY ---
General Admission Date/PCP: 09/22/18 21:[facility] Transfer Date: 09/24/18 Resuscitation Status: Full Code - Transfer Diagnosis (1) Hypertensive emergency Is this a current diagnosis for this admission?: Yes (2) Acute CVA (cerebrovascular accident) Is this a current diagnosis for this admission?: Yes (3) Diabetes Is this a current diagnosis for this admission?: Yes (4) Hypertension Is this a current diagnosis for this admission?: Yes - Transfer Medications Home Medications: Acetaminophen [Tylenol Extra Strength 500 mg Tablet] 500 mg PO Q6HP PRN 09/23/18 Aspirin [Ecotrin 81 mg EC Tablet] 81 mg PO DAILY 09/23/18 Capsaicin [Arthritis Pain Relieving] 1 applic TOP Q6HP PRN 09/23/18 Glipizide [Glucotrol 10 mg Tablet] 10 mg PO BIDACBS 09/23/18 Insulin Glargine,Hum.rec.anlog [Lantus Insulin 100 Unit/1 ml 10 ml] 10 units SQ QHS 09/23/18 Lisinopril [Prinivil 40 mg Tablet] 40 mg PO DAILY 09/23/18 Metformin HCl [Glucophage] 1,000 mg PO BIDACBS 09/23/18 Methocarbamol [Robaxin 750 mg Tablet] 1,500 mg PO Q8HP PRN 09/23/18 Naproxen [Naprosyn] 500 mg PO Q12HP PRN 09/23/18 Sildenafil Citrate [Viagra] 25 mg PO .AC SEXUAL ACTIVITY 09/23/18 Simvastatin [Zocor 20 mg Tablet] 10 mg PO QHS 09/23/18 Transfer Medications: Current Medications Acetaminophen (Tylenol 325 Mg Tablet) 650 mg PO Q4HP PRN PRN Reason: Temp greater than 101F Stop: 10/22/18 21:01 Aspirin (Aspirin 81 Mg Chewable Tablet) 81 mg PO DAILY [facility] Stop: 10/24/18 09:59 Last Admin: 09/24/18 09:56 Dose: 81 mg Documented by: Atorvastatin Calcium (Lipitor 80 Mg Tablet) 80 mg PO QHS ANETA Stop: 10/22/18 21:59 Last Admin: 09/23/18 21:30 Dose: 80 mg Documented by: Carvedilol (Coreg 12.5 Mg Tablet) 12.5 mg PO Q12 ANETA Stop: 08/06/19 09:59 Last Admin: 09/24/18 09:56 Dose: 12.5 mg Documented by: Dextrose (Dextrose Inj 50% Syringe (25 Gm/50 Ml)) 12.5 gm IV PRN PRN; Protocol PRN Reason: FOR BG 50-69 IN ALERT PATIENT Stop: 10/22/18 21:01 Dextrose (Dextrose Inj 50% Syringe (25 Gm/50 Ml)) 25 gm IV PRN PRN; Protocol PRN Reason: PER PROTOCOL Stop: 10/22/18 21:01 Docusate Sodium (Colace 100 Mg Capsule) 100 mg PO BIDP PRN PRN Reason: FOR CONSTIPATION Stop: 10/22/18 21:01 Glucagon (Glucagen Inj 1 Mg Vial) 1 mg IM PRN PRN; Protocol PRN Reason: Evaluate for BG < 70 Stop: 10/22/18 21:01 Glucose (Glutose 40% Gel 15 Gm Tube) 15 gm PO PRN PRN; Protocol PRN Reason: FOR BG 50-69 IN ALERT PATIENT Stop: 10/22/18 21:01 Glucose (Glutose 40% Gel 15 Gm Tube) 30 gm PO PRN PRN; Protocol PRN Reason: FOR BG < 50 IN ALERT PATIENT Stop: 10/22/18 21:01 Heparin Sodium (Porcine) (Heparin Inj 5,000 Units/Ml 1 Ml Syringe) 5,000 unit SUBCUT Q8 ANETA Stop: 10/22/18 21:59 Last Admin: 09/24/18 13:44 Dose: 5,000 unit Documented by: Hydralazine HCl (Apresoline Inj/Pf 20 Mg/1 Ml Sdv) 10 mg IV Q6HP PRN PRN Reason: Sbp>160 Stop: 10/23/18 06:37 Last Admin: 09/24/18 10:30 Dose: 10 mg Documented by: Hydrochlorothiazide (Hydrodiuril 25 Mg Tablet) 25 mg PO DAILY [facility] Stop: 10/24/18 09:59 Last Admin: 09/24/18 09:56 Dose: 25 mg Documented by: Nitroglycerin/Dextrose (Ntg Rtu 50 Mg/D5w 250 Ml Iv Premix Bottle) 50 mg in 250 mls @ 0 mls/hr IV CONTINUOUS PRN; Protocol PRN Reason: THIS MED IS NOT "PRN" Stop: 10/23/18 18:56 Last Titration: 09/24/18 15:30 Dose: 0 mcg/min, 0 mls/hr Documented by: Insulin Human Lispro (Humalog Insulin 100 Unit/1 Ml 3 Ml Vial) 0 - 12 unit SUBCUT AC [facility]; Protocol Stop: 10/23/18 07:59 Last Admin: 09/24/18 16:11 Dose: Not Given Documented by: Lisinopril (Prinivil 10 Mg Tablet) 40 mg PO DAILY [facility] Stop: 10/24/18 09:59 Last Admin: 09/24/18 09:56 Dose: 40 mg Documented by: Magnesium Hydroxide (Milk Of Magnesia 30 Ml Udcup) 30 ml PO HSP PRN PRN Reason: FOR CONSTIPATION Stop: 10/22/18 21:01 Sodium Chloride (Saline Flush 2.5 Ml Monoject Prefil Syrin) 2.5 ml IV Q8 [facility] Stop: 10/22/18 21:59 Last Admin: 09/24/18 13:44 Dose: Not Given Documented by: - Allergies Allergies/Adverse Reactions: No Known Allergies Allergy (Unverified 07/08/17 14:31) Hospital Course Hospital Course: This is a 53 yr old male with a PMH of HTN and DM 2 who presented on 09/24/18 with left sided facial numbness and slurred speech which started 5 days ago. MRI showed multiple acute/subacute infarcts on the right MCA distribution on top of multiple old infarcts. Patient did have improvement of his left sided facial numbness. He was evaluated by speech therapy who recommended mechanical soft diet. Patient was started on nitro drip last night as his blood pressures were uncontrolled and went to the 200 systolic and he became less conversant. This morning, he continues to have slurred speech but is more conversant and did state that his left facial numbness has resolved. Coreg was increased and hydrochlorothiazide was also added as he continued to require uptitration of nitro drip. Later this afternoon, he developed aphasia and left sided hemineglect. He has spontaenous eye opening but is now non-verbal. Floor RN reports that he is pooling secretions now and is unable to swallow. He was transferred to the ICU where he was noted to have hypopneic episodes. He continued to pool oral secretions and required suctioning. CT of the head was done to evaluate for hemorrhagic conversion and this came back unremarkable. Also ruling out cardioembolic source of CVA due to multiple infarcts. Cardiology recommends [facility]. Due to unavailability of neurology service and [facility] services, will transfer patient to tertiary hospital. Due to worsening mentation and patient not protecting his airway, he was intubated for airway protection prior to transport. Discussed case with [place] laboratory analyst, Dr. Javed Mercer who has accepted the transfer. Unfortunately, we are not able to do MRI to reassess or rule out brainstem CVA due to limited MRI capability at [facility] for intubated patients. Physical Exam Vital Signs: Temp Pulse Resp BP Pulse Ox 99.0 F 113 H 14 151/70 H 98 09/24/18 11:22 09/24/18 12:00 09/24/18 16:15 09/24/18 16:03 09/24/18 16:15 Intake & Output 09/23/18 09/24/18 09/25/18 06:59 06:59 06:59 Intake Total 1429 100 Output Total 100 Balance 1329 100 Weight 248 lb 3.848 oz 248 lb 0.321 oz General appearance: PRESENT: no acute distress, well-developed, well-nourished Head exam: PRESENT: atraumatic, normocephalic Eye exam: PRESENT: conjunctiva pink, EOMI, PERRLA. ABSENT: scleral icterus Ear exam: PRESENT: normal external ear exam Mouth exam: PRESENT: moist, tongue midline Neck exam: ABSENT: carotid bruit, JVD, lymphadenopathy, thyromegaly Respiratory exam: PRESENT: clear to auscultation amaris. ABSENT: rales, rhonchi, wheezes Cardiovascular exam: PRESENT: RRR. ABSENT: diastolic murmur, rubs, systolic murmur Pulses: PRESENT: normal dorsalis pedis pul GI/Abdominal exam: PRESENT: normal bowel sounds, soft. ABSENT: distended, guarding, mass, organolmegaly, rebound, tenderness Rectal exam: PRESENT: deferred Neurological exam: PRESENT: alert, CN II-XII grossly intact. ABSENT: oriented to person, oriented to place, oriented to time Results Laboratory Results: 09/23/18 04:28 09/24/18 10:07 09/24/18 09/24/18 10:07 16:05 Carbonic Acid 1.22 HCO3/H2CO3 Ratio 23:1 ABG pH 7.47 H ABG pCO2 40.5 ABG pO2 77.0 L ABG HCO3 28.5 H ABG O2 Saturation 96.1 ABG Base Excess 4.5 FiO2 ROOM AIR Sodium 140.5 Potassium 4.2 Chloride 98 Carbon Dioxide 31 H Anion Gap 12 BUN 10 Creatinine 0.83 Est GFR ( Amer) > 60 Est GFR (Non-Af Amer) > 60 Glucose 206 H Calcium 9.7 09/22/18 09/22/18 18:24 18:24 Creatine Kinase 623 H CK-MB (CK-2) 1.37 Troponin I 0.013 Impressions: Head MRI 09/22/18 00:00 IMPRESSION: 1. Multiple small scattered acute cortical/subcortical infarcts in the posterior right MCA territory. All infarcts are less than 7 mm. No hemorrhage or mass effect. 2. Atrophy and multiple old infarcts, as described Chest X-Ray 09/22/18 17:46 IMPRESSION: NO ACUTE RADIOGRAPHIC FINDING IN THE CHEST. Carotid Doppler Study 09/23/18 00:00 IMPRESSION: NO HEMODYNAMICALLY SIGNIFICANT STENOSIS. Head CT 09/24/18 00:00 IMPRESSION: NO ACUTE INTRACRANIAL IMAGING FINDINGS. EVIDENCE OF ACUTE STROKE: NO.
--- NOTE | 2018-09-24 17:47 | RADIOLOGY REPORT (SQ) ---
EXAM DESCRIPTION: CHEST SINGLE VIEW COMPLETED DATE/TIME: 09/24/2018 5:33 pm REASON FOR STUDY: ET Tube Placement and NG tube Placement COMPARISON: Chest radiographs 09/22/2018 EXAM PARAMETERS: NUMBER OF VIEWS: One view. TECHNIQUE: Single frontal radiographic view of the chest acquired. RADIATION DOSE: NA LIMITATIONS: None. FINDINGS: LUNGS AND PLEURA: Low lung volumes. No opacities, masses or pneumothorax. No pleural effu christopher. MEDIASTINUM AND HILAR STRUCTURES: No masses. Contour normal. HEART AND VASCULAR STRUCTURES: Heart normal in size. Normal vasculature. BONES: No acute findings. HARDWARE: Endotracheal tube projecting over the central airway with the tip terminating 1.6 cm above the yarelis. OTHER: Prominent gastric bubble. IMPRESSION: LOW ENDOTRACHEAL TUBE TERMINATING 1.6 CM ABOVE THE YARELIS. LOW LUNG VOLUMES. NO ACUTE PULMONARY FINDINGS OTHERWISE. TECHNICAL DOCUMENTATION: JOB ID: [id number] [employer]- All Rights Reserved Reading location - IP/workstation name: [email or web address]
[2018-09-24 18:33] VITALS: BP 108/76
== END 2018-09-24 18:05 | disposition short-term general hospital (02) | DRG 65 ==
LOC: ER 17:26 → EH 21:15 → 3S 09-23 00:03 → ICU 09-24 15:03
PROVIDERS: ADMIT Internal Medicine; ATTEND Internal Medicine
PROC: 5A09357 Assistance with Respiratory Ventilation, Less than 24 Consecutive Hours, Continuous Positive Airway Pressure (ICD-10-PCS; 2018-09-22)
PROC: 5A1935Z Respiratory Ventilation, Less than 24 Consecutive Hours (ICD-10-PCS; principal; 2018-09-24)
PROC: 0BH17EZ Insertion of Endotracheal Airway into Trachea, Via Natural or Artificial Opening (ICD-10-PCS; 2018-09-24)
DX: I63.411 Cerebral infarction due to embolism of right middle cerebral artery (principal); I16.1 Hypertensive emergency; R47.01 Aphasia; E11.9 Type 2 diabetes mellitus without complications; I10 Essential (primary) hypertension; R20.0 Anesthesia of skin; R47.81 Slurred speech; E66.9 Obesity, unspecified; Z78.1 Physical restraint status; Z79.899 Other long term (current) drug therapy; Z79.4 Long term (current) use of insulin; Z79.82 Long term (current) use of aspirin
CPT/HCPCS: 31500; 36415; 70450; 70551; 71045; 80048; 80053; 80061; 80307; 82550; 82553; 82803; 82962; 83036; 84484; 85025; 85610; 85730; 93005; 93010; 93880; 94002; 94660; J0330; J0360; J1100; J1644; J1815; J3490